=== PATIENT | female | born 1985 | race Caucasian/White ===

== ENCOUNTER → 2018-06-19 08:59 | Outpatient (CLI) | payer MEDICAID, SELFPAY ==
[2017-05-20 01:58] VITALS: BMI 28.3
[2018-06-19 13:30] LABS: Progesterone Level 13.26 ng/mL (See Comment)
== END ==
PROVIDERS: Visit Provider Obstetrics & Gynecology
DX: O20.0 Threatened abortion (principal)
CPT/HCPCS: 36415; 84144; 84702; 84703

== ENCOUNTER → 2018-06-23 13:41 | Outpatient (CLI) | payer MEDICAID, SELFPAY ==
[2018-06-23 19:34] LABS: Chlamydia Trachomatis by PCR Negative (Negative); Neisserai gonorrhoeae by PCR Negative (Negative); Probe Check PASS; Sample Adequacy Control PASS; Specimen Processing Control PASS
== END ==
PROVIDERS: Visit Provider Obstetrics & Gynecology
DX: Z11.3 Encounter for screening for infections with a predominantly sexual mode of transmission (principal)
CPT/HCPCS: 87491; 87591

== ENCOUNTER → 2018-07-21 10:53 | Outpatient (CLI) | payer MEDICAID, SELFPAY ==
[2017-05-20 01:58] VITALS: BMI 28.3
[2018-07-21 12:33] LABS: Absolute Lymphocyte Count 1.88 X10^3/ul (0.83-4.51); Absolute Neutrophil Count 6.5 X10^3/uL (2.0-7.7); Basophil# 0.02 X10^3/uL; Basophil% 0.2 % (0-1); Eosinophil# 0.02 X10^3/uL; Eosinophils% 0.2 % (0-5); Hematocrit 39.8 % (37-47); Hemoglobin 13.3 g/dl (12.0-15.0); Lymphocyte # 1.88 X10^3/ul (4.0); Lymphocyte % 20.5 % (19-41); Mean Corp Hgb Conc 33.4 g/gl (32-36); Mean Corpuscular Hgb 29.9 pg (27.0-32.0); Mean Corpuscular Volume 89.4 fL (81-99); Mean Platelet Vol. 10.8 fl (6.2-12.0); Monocyte% 7.6 % (0-10); Neutrophil # 6.53 X10^3/uL (2.7-7.7); Neutrophil % 71.3 % (47-70); Platelet Count 305 K/mm3 (150-450); RBC Distribution Width SD 42.8 fl (35.1-43.9); Red Blood Count 4.45 M/mm3 (4.2-5.4); White Blood Count 9.2 K/mm3 (4.4-11.0)
[2018-07-21 12:41] LABS: POSITIVE COUNT NO; POSITIVE DIFFERENTIAL NO; POSITIVE MORPHOLOGY NO
[2018-07-21 12:58] LABS: Thyroid Stim Hormone (TSH) 1.82 uIU/mL (0.358-3.74)
[2018-07-21 13:32] LABS: HIV - WCH Non-Reactive (Nonreactive)
[2018-07-21 14:12] LABS: Color, Urine Yellow (Yellow); Glucose, Dipstick Normal (Normal); Ketone-Dipstick Negative (Negative); Leukocyte Esterase-Dipstick Negative /ul (Negative); Nitrite-Dipstick Negative (Negative); Occult Blood-Urine Negative /ul (Negative); Protein-Dipstick Negative (Negative); Urine Bilirubin Dipstick Negative (Negative); Urine Clarity Sl. Cloudy (Clear); Urine Urobilinogen Normal (Normal)
[2018-07-21 14:21] LABS: Amphetamine Urine VISTA NEGATIVE (<1000 ng/mL); Barbiturate Urine VISTA NEGATIVE (< 200 ng/mL); Benzodiazepine Urine VISTA NEGATIVE (< 200 ng/mL); Cocaine Urine VISTA NEGATIVE (< 300 ng/mL); Ecstacy Urine VISTA NEGATIVE (< 500 ng/mL); Methadone Urine VISTA NEGATIVE (< 300 ng/mL); PCP Urine VISTA NEGATIVE (< 25 ng/mL); THC Urine VISTA NEGATIVE (< 50 ng/mL); Vista UDS pH Range 7
[2018-07-24 11:41] LABS: HEPATITIS B SURFACE AG Negative (Negative); Hep C Antibodies 0.1 s/co ratio (0.0-0.9)
[2018-07-27 20:17] LABS: Prenatal RPR NONREACTIVE (NONREACTIVE)
== END ==
PROVIDERS: Visit Provider Obstetrics & Gynecology
DX: Z34.81 Encounter for supervision of other normal pregnancy, first trimester (principal)
CPT/HCPCS: 36415; 80307; 81002; 82306; 84443; 85025; 86703; 86762; 86803; 87340

== ENCOUNTER → 2018-11-10 | Outpatient (CLI) | payer MEDICAID, SELFPAY ==
[2017-05-20 01:58] VITALS: BMI 28.3
[2018-11-10 14:59] LABS: Hematocrit 36.1 % (37-47); Hemoglobin 12.1 g/dl (12.0-15.0); Mean Corp Hgb Conc 33.5 g/gl (32-36); Mean Corpuscular Hgb 29.9 pg (27.0-32.0); Mean Corpuscular Volume 89.1 fL (81-99); Mean Platelet Vol. 10.6 fl (6.2-12.0); Platelet Count 263 K/mm3 (150-450); RBC Distribution Width CV 13.2 % (11.6-14.6); RBC Distribution Width SD 43.1 fl (35.1-43.9); Red Blood Count 4.05 M/mm3 (4.2-5.4); White Blood Count 9.6 K/mm3 (4.4-11.0)
[2018-11-10 15:00] LABS: Scan Indicated on CBC? Y/N NO
[2018-11-10 15:14] LABS: Glucose Challenge Gest 1H 50g 108 mg/dL (70-140)
== END | disposition home or self-care (01) ==
LOC: WOBLAB 10:09
PROVIDERS: Visit Provider Obstetrics & Gynecology
DX: Z34.82 Encounter for supervision of other normal pregnancy, second trimester (principal)
CPT/HCPCS: 36415; 82950; 85027

== ENCOUNTER → 2019-01-12 | Outpatient (CLI) | payer MEDICAID, SELFPAY ==
[2017-05-20 01:58] VITALS: BMI 28.3
== END | disposition home or self-care (01) ==
LOC: LABSPEC 15:06
PROVIDERS: Visit Provider Obstetrics & Gynecology
DX: Z36.85 Encounter for antenatal screening for Streptococcus B (principal)
CPT/HCPCS: 87077; 87081; 87186

== ENCOUNTER 2019-01-25 09:43 | Inpatient (IN) | payer MEDICAID, SELFPAY ==
[2017-05-20 01:58] VITALS: BMI 28.3
[2019-01-25] VITALS (17 sets, daily range): BP systolic 92–121; BP diastolic 52–74; PULSE 60–108; RESP 12–18; TEMP 36.2–36.6; O2SAT 94–100; BMI 27.7
[2019-01-25] MEDS: Lactated Ringers 1,000 ML 999 ML IV (10:25)
[2019-01-25 10:37] LABS: Absolute Lymphocyte Count 1.54 X10^3/uL (0.83-4.51); Absolute Neutrophil Count 6.9 X10^3/uL (2.0-7.7); Basophil# 0.03 X10^3/uL; Basophil% 0.3 % (0-1); Eosinophil# 0.06 X10^3/uL; Eosinophils% 0.6 % (0-5); Hematocrit 38.3 % (37-47); Hemoglobin 12.6 g/dL (12.0-15.0); Lymphocyte # 1.54 X10^3/ul (4.0); Lymphocyte % 16.6 % (19-41); Mean Corp Hgb Conc 32.9 g/dL (32-36); Mean Corpuscular Hgb 29.4 pg (27.0-32.0); Mean Corpuscular Volume 89.5 fL (81-99); Mean Platelet Vol. 10.5 fl (6.2-12.0); Monocyte# 0.76 X10^3/uL; Monocyte% 8.2 % (0-10); NRBC Flagged by Analyzer 0 % (0-5); Neutrophil # 6.85 X10^3/uL (2.7-7.7); Platelet Count 218 K/mm3 (150-450); RBC Distribution Width CV 13.2 % (11.6-14.6); Red Blood Count 4.28 M/mm3 (4.2-5.4); White Blood Count 9.3 K/mm3 (4.4-11.0)
[2019-01-25] MEDS: Lactated Ringers 1,000 ML 150 ML IV (11:24)
[2019-01-25] MEDS: Sodium Citrate/Citric Acid 30 ML UDC PO (11:30)
--- NOTE | 2019-01-25 11:57 | PCM.HP.OB ---
- Problem List (1) 38 weeks gestation of Status: Acute History Date of Admission: 01/25/19 Final KENNETH: 02/06/19 Final KENNETH Source: US <20 weeks Gestational age: 38 Weeks and 4 Days History of this : This is a 33 year-old, G [2], P [1], at 38 2/7 weeks gestational age with hx prior section presents for scheduled repeat section. Yesterday was seen in the office and SUZANNE 5cm. No complaints this morning. Medical History: Medical History (Last Updated 01/25/19 @ 12:04 by Kristina Huber MD) Anxiety F41.9 Asthma J45.909 childhood Seasonal allergies J30.2 Surgical History: Surgical History (Last Updated 01/25/19 @ 11:59 by Kristina Huber MD) Previous section Z98.891 Allergies No Known Allergies Allergy (Verified 05/20/17 01:59) Home Medications: Home Medications Vits [Prenatabs FA ] 1 tablet PO DAILY 05/20/17 Ibuprofen [Motrin] 600 mg PO Q8H PRN PRN 7 Days #30 tab 01/27/19 Oxycodone [Oxyir] 1 tab PO Q6H PRN PRN 7 Days #10 tab 01/27/19 Smoking Status: Never smoker Alcohol: None Number of Fetus(es): 1 NST - FHR Rate Baby A Baseline: 148 bpm History Past Pregnancies: Past Pregnancies Delivery Date Name GA/Weeks Outcome Route Weight Infant Gender Labor Length Anesthesia Delivery Location FOB 2017 Vandana 38 Placental abruption C/S 7 lb F 0 Spinal [facility] Labs: Mom's Labs & Results 01/25/19 01/25/19 10:25 10:25 WBC 9.3 RBC 4.28 Hgb 12.6 Hct 38.3 MCV 89.5 MCH 29.4 MCHC 32.9 RDW Std Deviation 43.0 RDW Coeff of Johnnie 13.2 Plt Count 218 MPV 10.5 Immature Gran % (Auto) 0.300 Neut % (Auto) 74.0 H Lymph % (Auto) 16.6 L [place] % (Auto) 8.2 Eos % (Auto) 0.6 Baso % (Auto) 0.3 Absolute Neuts (auto) 6.9 Absolute Lymphs (auto) 1.54 Nucleated RBC % 0 Blood Type O POSITIVE Antibody Screen NEGATIVE Course Did the patient receive Yes care? Labs Blood Type: O RH: POSITIVE RPR/VDRL/Syphilis Nonreactive Rubella status Immune HbSAg Negative Date Done: 07/21/18 Chlamydia Negative Gonorrhea Negative HIV/AIDS Non-Reactive Group B Strep: Positive Current Obstetrical History Gestational Diabetes No Incompetent Cervix No Infertility No IUGR No Macrosomia No Hypertension/Pre-eclampsia No Placenta Previa/Abruption No PTL/PROM No Uterine anomaly No Oligohydramnios Yes Polyhydramnios No Multiple gestation No Past Medical History Asthma Yes: HIGH SCHOOL NOT NOW. Diabetes No Hypertension No Heart disease No Mitral valve prolapse No Neurologic/Seizure disorder/ No Migraines Kidney disease No Liver disease No Varicosities No Clotting disorders/Hx of DVT No Thyroid Dysfunction No Other medical diseases No Psychiatric disorders No Major trauma No Abnormal PAP smear No Sleep apnea No Mammogram in the last 2 years No Social History Marital Status: Alleged father WALDEMAR Hx Smoking No Smoking Status Never smoker How long have you used DENIES USE substances (years)? Expected Infant Delivery Method: Scheduled Section Number of Visits: 11 Review of Systems Constitutional: Denies: Anorexia, Chills, Fever Cardiovascular: Denies: Chest Pain Respiratory: Denies: Shortness of Breath Gastrointestinal: Denies: Abdominal Pain, Nausea, Vomiting Gynecological: Denies: Vaginal bleeding Physical Exam Vitals: AVSS General: Alert, Oriented x3, Cooperative, No apparent distress HEENT: Atraumatic, Normocephalic Cardiovascular: Regular rate, Regular Rhythm, Normal S1, Normal S2 Lungs: Clear to auscultation, Normal air movement Abdomen: Soft, Non Tender, Non-Distended, Gravid Extremities:: No edema, No tenderness/swelling Neurological: Neuro grossly intact Estimated gestational size: Appropriate for gestational size Presentation: Cephalic Assessment/Plan All Active Problems (Last Updated 01/25/19 @ 12:04 by Kristina Huber MD) 38 weeks gestation of (Acute) Placental abruption in third trimester (Acute) delivery delivered (Acute) This is a 33 year-old, G [2], P [1001], at 38 2/7 weeks gestational age with oligohydramnios for repeat section. -Declines LARC, sterilization -Consents previously signed, reviewed.
[2019-01-25] MEDS: Cefazolin 2 GM in 0.9% Normal Saline 100 ML IV (12:24)
--- NOTE | 2019-01-25 13:15 | OP.PCM_ITS ---
Problem List (1) 38 weeks gestation of Status: Acute Report of Operation Description of Surgical Findings:: Normal bilateral tubes and ovaries. Infant weight 2945 g Delivery Classification: Scheduled Final KENNETH: 02/06/19 Final KENNETH Source: US <20 weeks Gestational age: 38 Weeks and 2 Days rag grader: Robbie Quispe Type of Anesthesia:: Spinal Date of Procedure: 01/25/19 Pre-Operative Diagnosis: Prior section, oligohydramnios Post-Operative Diagnosis: Prior section, oligohydramnios Indications: 83-year-old 2 para 1-0-0-1 admitted at 38-2/7 weeks gestational age for scheduled section for oligohydramnios. She previously declined trial of labor after section. Procedural risks, benefits, indications and alternatives were reviewed Indications for : Repeat Elective , Oligohydramnios Description of Procedure: The patient was taken to the operating room and spinal analgesia was administered. She is placed in a dorsal supine position with left lateral tilt. The perineum and abdomen were prepped and draped in sterile fashion. And the spinal was found to be adequate. A Pfannenstiel incision was made using a scalpel and brought down to incise the subcutaneous tissue and rectus fascia at the midline. Subcutaneous tissue was bluntly dissected off the fascia later ally. The fascial incision was dissected laterally and cephalad using curved Walden scissors. The superior leaflet of the rectus fascia was grasped using Kaylie clamps and bluntly dissected and sharply dissected from the underlying rectus muscle. In a similar fashion the inferior rectus fascia was dissected from the underlying muscle. The rectus muscles were bluntly at the midline. The peritoneum was identified and entered [sharply]. The bladder blade was placed into the abdomen and the vesicouterine peritoneal fold identified. The fold was incised and a bladder flap created. Bladder blade was then repositioned to the abdomen. A low transverse hysterotomy was made using the [Metzenbaum scissors] to level of the membranes. The hysterotomy was extended bluntly cephalad and caudad. The membranes were then ruptured revealing clear fluid. The head was elevated and brought to the level of the hysterotomy and the infant delivered revealing vigorous [male] . The cord was doubly clamped and cut after 30 seconds. The infant was passed to awaiting [nursery personnel]. The placenta was [expressed] from the uterus and appeared intact on inspection. The uterus was cleared of debris. The hysterotomy was then repaired using 0 Vicryl running lock suture. A second imbricating layer was also placed for additional hemostasis. The bladder blade was removed. The anterior cul-de-sac was cleared of debris. The peritoneum and rectus muscles were reapproximated using 2-0 Vicryl running suture. The rectus fascia was closed using 0 Vicryl running suture. The subcutaneous tissue was sponge irrigated and small capillary bleeding controlled using the Bovie device. The subcutaneous tissue was reapproximated using 2-0 Vicryl. The skin was closed using 4-0 Monocryl subcuticularly by the ASSOCIATE PROFESSOR OF RADIOLOGY under my supervision. A Mepilex occlusive dressing was placed over the incision. The fundus was firm. The patient was then transferred to the recovery room without complication. Sponge, instrument, and needle counts were correct ?2. Amniotic Membrane Rupture Type: Artificial Amniotic Fluid Description: Clear Placenta Disposition: [facility] Drain: Sam to straight drain Fluids Replaced: 100 mL Cord Entanglement: Around neck x 1, loose Nuchal Cord Compression: Without compression Cord Vessel Description: 3 Vessels Esitmated Blood Loss (ml): 600 Infant Gender: Male (1 minute): 8 (5 minute): 9 Delayed cord clamping: Yes Antibiotic Given: Ancef 2 grams IV x1 Pt instructed on risks of surgery: Bleeding, Anesthesia Risks, Infection, Need for Future C-Sections, Injury to surrounding structure(s) including bowel and bladder, Availability of other non-permanent control options Complications: None - Admit VTE Documentation VTE Present on Admission: No VTE Mechan Device Prophylaxis: SCD's VTE Pharm Prophylaxis ordered?: No
[2019-01-25] MEDS: Oxytocin 30 units/NS 500 ml 30 UNITS/500 ML IV.SOLN 167 UNITS IV (13:54)
[2019-01-25] MEDS: 0.9% Saline Lock 10 ML Syringe IV ×2 (14:23→20:19)
[2019-01-25] MEDS: proCHLORPERazine 10 MG/2 ML Vial IV (14:23)
--- NOTE | 2019-01-25 15:19 | CPS ---
mom busy,left in room for nursing to start
[2019-01-25] MEDS: Ondansetron 4 MG/2 ML Vial IV ×2 (16:20→20:19)
[2019-01-25] MEDS: Lactated Ringers 1,000 ML 100 ML IV (17:00)
[2019-01-25] MEDS: Ketorolac 30 MG/ML Syringe IV (20:18)
[2019-01-26] VITALS (11 sets, daily range): BP systolic 95–118; BP diastolic 54–83; PULSE 74–89; RESP 14–18; TEMP 36.3–36.8; O2SAT 97–100
[2019-01-26] MEDS: Lactated Ringers 1,000 ML 100 ML IV (01:31)
[2019-01-26] MEDS: Ketorolac 30 MG/ML Syringe IV ×4 (02:22→20:33)
[2019-01-26 05:17] LABS: Hemoglobin 8.9 g/dL (12.0-15.0); Mean Corpuscular Hgb 29.5 pg (27.0-32.0); Mean Corpuscular Volume 89.4 fL (81-99); Mean Platelet Vol. 10.6 fl (6.2-12.0); Platelet Count 180 K/mm3 (150-450); RBC Distribution Width CV 13.3 % (11.6-14.6); RBC Distribution Width SD 43.7 fl (35.1-43.9); Red Blood Count 3.02 M/mm3 (4.2-5.4)
[2019-01-26] MEDS: 0.9% Saline Lock 10 ML Syringe IV ×3 (08:28→20:33)
--- NOTE | 2019-01-26 09:04 | PN.OBGYN_ITS ---
Subjective: No issues overnight. Pain controlled, improved today. Passing flatus. Tolerates regular diet. No issues voiding. Denies heavy lochia. Objective: AVSS - Physical Exam General: Alert, Oriented x3, Cooperative, No apparent distress HEENT: Atraumatic, Normocephalic Lungs: Clear to auscultation, Normal air movement Cardiovascular: Regular rate, Regular Rhythm, Normal S1, Normal S2 Abdomen: Bowel Sounds Present, Soft, Non Tender, Non-Distended, - - fundus firm and nontender, incisional dressing c/d/i Extremities: No edema, No Calf Tenderness Neurological: Neuro grossly intact Psych/Mental Status: Normal Affect, Appropriate, Alert and oriented to time, place, person, mood and affect Vital Signs Temp Pulse Resp BP Pulse Ox 98.2 F 85 18 118/83 H 97 01/26/19 08:51 01/26/19 08:51 01/26/19 08:51 01/26/19 08:51 01/26/19 08:51 Oxygen Delivery Method Room Air Weight: 68.765 kg Body Mass Index (BMI) 27.7 Intake and Output for Last 24 Hours 01/24/19 01/25/19 01/26/19 23:59 23:59 23:59 Intake Total 4210 / 4210 1050 / 1050 Output Total 900 / 900 1000 / 1000 Balance 3310 / 3310 50 / 50 Laboratory Tests Past 24 Hrs 01/25/19 01/25/19 01/26/19 10:25 10:25 05:05 WBC 9.3 12.0 H RBC 4.28 3.02 L Hgb 12.6 8.9 L Hct 38.3 27.0 L MCV 89.5 89.4 MCH 29.4 29.5 MCHC 32.9 33.0 RDW Std Deviation 43.0 43.7 RDW Coeff of Johnnie 13.2 13.3 Plt Count 218 180 MPV 10.5 10.6 Immature Gran % (Auto) 0.300 Neut % (Auto) 74.0 H Lymph % (Auto) 16.6 L [place] % (Auto) 8.2 Eos % (Auto) 0.6 Baso % (Auto) 0.3 Absolute Neuts (auto) 6.9 Absolute Lymphs (auto) 1.54 Nucleated RBC % 0 Blood Type O POSITIVE Antibody Screen NEGATIVE Medical Necessity - Tobacco Use Smoking Status: Never smoker Assessment/Plan All Active Problems (Last Updated 01/25/19 @ 12:04 by Kristina Huber MD) 38 weeks gestation of (Acute) Placental abruption in third trimester (Acute) delivery delivered (Acute) This is a 33 year-old, G [2], P [2002] POD#2 s/p RLTCS doing well. -Routine postop care
[2019-01-26] MEDS: Prenatal Vits Tablet 1 TABLET PO (10:38)
[2019-01-26] MEDS: Senna/Docusate Sodium 1 Tablet PO (10:38)
[2019-01-26] MEDS: Acetaminophen 500 MG Tablet 1000 MG PO (10:39)
[2019-01-27 01:30] VITALS: BP 108/61; PULSE 85; RESP 16; TEMP 36.4; O2SAT 99
[2019-01-27] MEDS: Ketorolac 30 MG/ML Syringe IV ×3 (01:30→14:20)
[2019-01-27] MEDS: 0.9% Saline Lock 10 ML Syringe IV ×3 (01:30→14:20)
--- NOTE | 2019-01-27 03:44 | DCINST_ITS ---
Discharge Diet: No Restrictions Discharge Activity: Return to Normal Activity, May not drive while taking narcotic pain medications., May Shower, - - No tub bath for 1-2 weeks May resume sexual activity in: 4-6 weeks Lifting Restrictions: 10 lb Suture Line Care: Avoid Pulling/Pushing Remove Dressing in (days):: 2 Cleanse incision/area with: Soap & Water Additional Instructions: If you experience any of the following, contact your healthcare provider. * Bleeding that soaks a pad every hour for 2 hours * Fever 100.4 or higher * Unrelieved incision or abdominal pain * Swelling, redness, discharge or bleeding from your incision or episiotomy site * Your incision begins to separate * Problems urinating (including inability to urinate or burning while urinating) . * Visual changes * Severe headache * Flu-like symptoms * Pain or redness in one of both of your breasts * Pain, warmth, tenderness or swelling in your legs, especially the calf area * Frequent nausea and vomiting * Symptoms of depression or anxiety If you experience any of the following, call 911 or go to the nearest Emergency Room. * Chest pain * Problems breathing * Seizure activity * Partial or complete paralysis of a body part, slurred speech, weakness or drooping of the face, or a sudden inability to walk or hold your balance Allergies/Adverse Reactions: Allergies No Known Allergies Allergy (Verified 05/20/17 01:59) Medications to take at Discharge Vits [Prenatabs FA ] 1 tablet PO DAILY 05/20/17 Ibuprofen [Motrin] 600 mg PO Q8H PRN PRN 7 Days #30 tab 01/27/19 Oxycodone [Oxyir] 1 tab PO Q6H PRN PRN 7 Days #10 tablet 01/27/19 The following prescriptions were given: Ibuprofen [Motrin] 600 mg PO Q8H PRN PRN 7 Days #30 tab PRN Reason: Mild Pain (1-07/23) Transmission Status: Pending to [id number] Oxycodone [Oxyir] 1 tab PO Q6H PRN PRN 7 Days #10 tablet PRN Reason: Mod-Severe Pain (-02/22) Transmission Status: Received by [id number] Follow-Up: Call to make an appointment with your doctor for an incision check in 1-2 weeks. You will also need a 6 week post- follow up appointment. Test results from this visit will be discussed in further detail at your follow- up appointment, if applicable. Please Follow Up With: Kristina Huber MD When: 1-2 weeks Primary Care Physician: Care Physician,No Primary [Primary Care Provider] -
--- NOTE | 2019-01-27 07:52 | PCM.PN.OB ---
Subjective: No issues overnight. Pain controlled, not requiring oxycodone. Denies heavy lochia. Had a bowel movement. Requests d/c home today. Objective: AVSS - Physical Exam General: Alert, Oriented x3, Cooperative, No apparent distress HEENT: Atraumatic, Normocephalic Lungs: Clear to auscultation, Normal air movement Cardiovascular: Regular rate, Regular Rhythm, Normal S1, Normal S2 Abdomen: Bowel Sounds Present, Soft, Non Tender, Non-Distended, - - Fundus firm and nontender, lochia scant Extremities: No edema, No Calf Tenderness Neurological: Neuro grossly intact Psych/Mental Status: Normal Affect, Appropriate, Alert and oriented to time, place, person, mood and affect Vital Signs Temp Pulse Resp BP Pulse Ox 97.6 F L 85 16 108/61 99 01/27/19 01:30 01/27/19 01:30 01/27/19 01:30 01/27/19 01:30 01/27/19 01:30 Oxygen Delivery Method Room Air Weight: 68.765 kg Body Mass Index (BMI) 27.7 Intake and Output for Last 24 Hours 01/25/19 01/26/19 01/27/19 23:59 23:59 23:59 Intake Total 4210 / 4210 1994 Output Total 900 / 900 1900 / 1900 Balance 3310 / 3310 95 / 95 Medical Necessity - Tobacco Use Smoking Status: Never smoker Assessment/Plan All Active Problems (Last Updated 01/25/19 @ 12:04 by Kristina Huber MD) 38 weeks gestation of (Acute) Placental abruption in third trimester (Acute) delivery delivered (Acute) This is a 33 year-old, G [2], P [2] POD#2 s/p RLTCS doing well. -Rh positive -Routine postop care -D/C this afternoon
--- NOTE | 2019-01-27 07:55 | PCM.DC.SUM ---
Discharge Date and Diagnosis Date of Admission: 01/25/19 Date of Discharge: 01/27/19 Hospital Course and Treatment Operations: - - section Procedures: None Summary of Care Provided: The patient is a 33 year old F admitted at 38 weeks gestation with oligohydramnios for scheduled repeat section. Her surgery was uncomplicated and her postoperative course unremarkable. She was discharged to home on postop day#2. - Physical Exam Vital Signs Temp Pulse Resp BP Pulse Ox 97.6 F L 85 16 108/61 99 01/27/19 01:30 01/27/19 01:30 01/27/19 01:30 01/27/19 01:30 01/27/19 01:30 Oxygen Delivery Method Room Air Weight: 68.765 kg Body Mass Index (BMI) 27.7 Intake and Output for Last 24 Hours 01/25/19 01/26/19 01/27/19 23:59 23:59 23:59 Intake Total 4210 / 4210 1994 Output Total 900 / 900 1900 / 1900 Balance 3310 / 3310 95 / 95 Discharge Diet: No Restrictions Discharge Activity: Return to Normal Activity, May not drive while taking narcotic pain medications., May Shower, - - No tub bath for 1-2 weeks May resume sexual activity in: 4-6 weeks Suture Line Care: Avoid Pulling/Pushing Remove Dressing in (days):: 2 Cleanse incision/area with: Soap & Water Home Medications: Medications to take at Discharge Vits [Prenatabs FA ] 1 tablet PO DAILY 05/20/17 Ibuprofen [Motrin] 600 mg PO Q8H PRN PRN 7 Days #30 tab 01/27/19 Oxycodone [Oxyir] 1 tab PO Q6H PRN PRN 7 Days #10 tab 01/27/19 Following Prescrptions Were Given to Patient: Ibuprofen [Motrin] 600 mg PO Q8H PRN PRN 7 Days #30 tab PRN Reason: Mild Pain (1-3/10) Transmission Status: [facility] by [id number] Oxycodone [Oxyir] 1 tab PO Q6H PRN PRN 7 Days #10 tab PRN Reason: Mod-Severe Pain (4-10/10) Transmission Status: Received by [id number] Primary Care Physician: Care Physician,No Primary [Primary Care Provider] - Please Follow Up With: Kristina Huber MD When: 1-2 weeks Medical Necessity - Tobacco Use Smoking Status: Never smoker Meaningful Use Info Meaningful Use Diagnoses (Choose all that apply): None applicable
[2019-01-27 08:07] VITALS: BP 105/71; PULSE 84; RESP 16; TEMP 36.5; O2SAT 98
--- NOTE | 2019-01-27 11:10 | CASEMGMT ---
Social Work Assessment Labor and Delivery Unit Date of Referral: 01/25/19 Time of Referral: 18:53 Date of Intervention: 01/27/19 Time of Intervention: 11:10a Reason for Referral: HX POST DEPRESSION, ANXIETY AND RAGE. History obtained from: MEDICAL CHART, MOTHER OF BABY (MOB) AND FATHER OF BABY (FOB). Household composition: MOB AND FOB LIVE IN THE FINISHED BASEMENT OF MOB'S PARENT'S HOME WITH 20 MONTH OLD DAUGHTERNIC. Patient's parent/guardian status: MOB AND FOB HAVE BEEN TOGETHER 9 YEARS ( 5). Medical History: MOB WITH HX OF WITH FIRST CHILD. Financial Status: LIMITED INCOME. 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 Infant Supplies: MOB AND FOB REPORT HAVE ALL NEEDS MET FOR BABY. Childcare/Caregiver(s): MOB AND FOB REPORT GOOD SUPPORT FROM MOB'S PARENTS AND FOB'S MOTHER. Transportation: NO ISSUES OR CONCERNS Programs/Agencies Involved: [facility] Children Services/Legal Issues: MOB AND FOB DENY ANY ISSUES OR INVOLVEMENT. Behavioral Health Issues: Mental Health History: MOB REPORTS HX OF PPD, ANXIETY AND RAGE AFTER FIRST . MOB STATES ANXIETY AND RAGE STARTED AFTER SHE WEANED HERSELF OFF OF ZOLOFT WHEN SHE BECAME WITH BABYJOHNNY. MOB BELIEVES THE RAGE TO HAVE BEEN A SIDE EFFECT FROM WEANING OFF ZOLOFT. MOB STATES RAGE WAS NEVER TOLD ANYONE. MOB REPORTS PLANS TO FOLLOW UP WITH COUNSELING SERVICES AND SPEAK TO OB ABOUT STARTING BACK ON MEDICATION. Substance Use History: MOB DENIES ANY HX OF SUBSTANCE ABUSE. Drug Screens: NEGATIVE Family/Social Stressors: MOB AND FOB DENY ANY STRESSORS AT THIS TIME, BUT STATE WE'LL HAVE OUR HANDS FULL WHEN DISCUSSING NEW BABY AND 20 MONTH OLD AT HOME. SUPPORT AND ENCOURAGEMENT PROVIDED BY THIS WORKER. Support Systems: MOB AND FOB HAVE GOOD RELATIONSHIP AND RELY ON EACH OTHER. MOB STATES GOOD RELATIONSHIP WITH PARENTS WHO WILL ASSIST NEEDED AND ARE CURRENTLY TAKING CARE OF 20 MONTH OLDNIC. Depression/Shaken Baby/Safe Sleeping REVIEWED AND BOTH VERBALIZE UNDERSTANDING. RESOURCES PROVIDED. ASSESSMENT: SW REFERRED D/T HX OF PPD, ANXIETY AND RAGE. MET WITH MOB AND FOB IN ROOM. INTRODUCED ROLE AND REASON FOR REFERRAL. MOB SITTING UP IN BED HOLDING BABY JOHNNY HERRERA UPON ENTERING THE ROOM. DISCUSSED HX OF PPD. MOB REPORTS WAS PRESCRIBED GENERIC ZOLOFT AND WHEN SHE BECAME WITH JOHNNY, SHE WEANED OFF THE ZOLOFT. MOB STATES FELT FINE FOR A FEW WEEKS, BUT THEN ANXIETY HAD INCREASED. MOB STATES FEELINGS OF RAGE WHERE NEVER TOWARDS ANY ONE. MOB STATES IF SOMETHING WAS TO FALL, I WOULD WANT TO THROW IT AGAINST THE WALL. MOB STATES WAS IN COUNSELING AT [facility] AND STATES PLANS ON RETURNING. MOB ALSO WISHES TO DISCUSS OPTIONS FOR TREATMENT WITH OB. MOB IS AND FEELS IT IS GOING WELL. MOB AND FOB HAVE GOOD SUPPORT FROM ONE ANOTHER AND FAMILY. MOB DENIES ANY NEEDS OR CONCERNS. INFORMATIONAL PACKET ON PPD PROVIDED AND REVIEWED. MOB AND FOB ALSO PROVIDED WITH LIST OF RESOURCES FOR [facility]. UPDATED PATIENT'S NURSE, GALA ON THIS WORKER'S ASSESSMENT. PLAN FOR MOB AND BABY TO D/C LATER THIS DAY. PLAN: HOME WITH RESOURCES PROVIDED No other services requested or indicated. -Puja Palacio, OIL AND GAS EXPLORATION TECHNICIAN, MUTUEL CLERK
[2019-01-27] MEDS: Acetaminophen 500 MG Tablet 1000 MG PO (11:17)
[2019-01-27] MEDS: Prenatal Vits Tablet 1 TABLET PO (11:17)
[2019-01-27 14:14] VITALS: BP 101/66; PULSE 77; RESP 16; TEMP 36.7; O2SAT 99
[2019-01-27] MEDS: Senna/Docusate Sodium 1 Tablet PO (14:30)
== END 2019-01-27 16:15 | disposition home or self-care (01) | DRG 540 ==
PROVIDERS: Admitting Provider Obstetrics & Gynecology; Referring Provider Obstetrics & Gynecology; Visit Provider Obstetrics & Gynecology
PROC: 10D00Z1 Extraction of Products of Conception, Low, Open Approach (ICD-10-PCS; CPT 59514; principal; 2019-01-25 11:45)
DX: O41.03X0 Oligohydramnios, third trimester, not applicable or unspecified (principal); O69.81X0 Labor and delivery complicated by cord around neck, without compression, not applicable or unspecified; Z3A.38 38 weeks gestation of pregnancy; Z37.0 Single live birth
CPT/HCPCS: 85025; 85027; 86850; 86900; 86901; 99218; J7120; A4216; G0378; J2405

== ENCOUNTER → 2020-10-17 14:01 | Outpatient (CLI) | payer SELFPAY ==
[2019-01-25 10:33] VITALS: BMI 27.7
[2020-10-21 13:24] LABS: HPV APTIMA, High Risk Negative (Negative)
== END ==
PROVIDERS: Visit Provider Obstetrics & Gynecology
DX: Z12.4 Encounter for screening for malignant neoplasm of cervix (principal)
CPT/HCPCS: 87624; 88175; G0145

== ENCOUNTER → 2020-10-29 15:34 | Outpatient (CLI) | payer SELFPAY ==
[2019-01-25 10:33] VITALS: BMI 27.7
--- NOTE | 2020-10-29 15:42 | MRI_ITS ---
STUDY: MRI CERVICAL SPINE WITHOUT CONTRAST REASON FOR EXAM: Female, 34 years old. NECK PAIN RADITAES INTO L ARM/FINGERS TECHNIQUE: Standardized fat and water weighted pulse sequences were obtained in the sagittal and axial planes. COMPARISON: None FINDINGS: Low lying cerebellar tonsils, extending 5 mm below the foramen magnum, with peglike appearance. Normal anterior atlantoaxial articulation. Normal odontoid process. Normal cervical lordosis. Normal vertebral bodies and posterior osseous elements. C2-3: Normal endplates. Normal disc height, signal and morphology. Normal central canal and intervertebral neural foramina. C3-4: Normal endplates. Normal disc height, signal and morphology. Normal central canal and intervertebral neural foramina. C4-5: Normal endplates. Normal disc height, signal and morphology. Normal central canal and intervertebral neural foramina. C5-6: Normal endplates. Mild disc space narrowing. Small central disc protrusion causes mild cord flattening and borderline canal stenosis. Normal intervertebral neural foramina. C6-7: Normal endplates. Normal disc height, signal and morphology. Small central disc protrusion with mild canal stenosis. Normal intervertebral neural foramina. C7-T1: Normal endplates. Normal disc height, signal and morphology. Normal central canal and intervertebral neural foramina. Normal cervical cord. Normal visualized soft tissue structures. MRI/Spine Cervical (Routine) IMPRESSION: 1. Tonsillar ectopia. If clinically warranted, consider CT of the brain to exclude hydrocephalus. 2. Small C5-6 disc protrusion causing cord flattening and borderline canal stenosis. 3. Small C6-7 disc protrusion and mild canal stenosis. Electronically Signed: Dorothy Boyd MD at 22:17 EDT Tel , Service support ,
== END ==
PROVIDERS: PCP Family Medicine
DX: M99.01 Segmental and somatic dysfunction of cervical region (principal); M54.12 Radiculopathy, cervical region
CPT/HCPCS: 72141

== ENCOUNTER → 2021-10-06 | Outpatient (CLI) | payer OTHER, SELFPAY ==
[2021-10-06 13:24] LABS: Hematocrit 36.3 % (37-47); Hemoglobin 10.8 g/dL (12.0-15.0); Mean Corp Hgb Conc 29.8 g/dL (32-36); Mean Corpuscular Hgb 23.9 pg (27.0-32.0); Mean Corpuscular Volume 80.3 fL (81-99); Mean Platelet Vol. 10.6 fl (6.2-12.0); Platelet Count 449 K/mm3 (150-450); RBC Distribution Width CV 16.2 % (11.6-14.6); RBC Distribution Width SD 47.2 fl (35.1-43.9); Red Blood Count 4.52 M/mm3 (4.2-5.4); White Blood Count 7.7 K/mm3 (4.4-11.0)
[2021-10-06 13:39] LABS: Vitamin D,25 Hydroxy 30.2 ng/mL
[2021-10-06 13:49] LABS: AST(SGOT) 12 U/L (15-37); Alanine Aminotransfer ALT/SGPT 25 U/L (13-56); Albumin, Serum 4.2 g/dL (3.2-5.0); Alkaline Phosphatase 60 U/L (45-117); Bilirubin, Direct 0.18 mg/dL (0.00-0.30); Estradiol 81.4 pg/mL; Free T3 2.9 pg/mL (2.18-3.98); Globulin 3.7 g/dL (2.2-4.2); Protein, Total 7.9 g/dL (6.4-8.2); T4 Free Direct 1.22 ng/dL (0.76-1.46); Thyroid Stim Hormone (TSH) 2.75 uIU/mL (0.358-3.74)
[2021-10-07 10:02] LABS: Sex Hormone-binding Globulin 71.1 nmol/L (24.6-122.0)
[2021-10-08 17:04] LABS: T3 Total - Triiodothyronine 1.01 ng/mL (0.6-1.81)
[2021-10-13 22:06] LABS: Thyroid Peroxidase AB < 8 IU/mL (0-34)
[2021-10-14 09:10] LABS: Thyroglobulin Antibody < 1.0 IU/mL (0.0-0.9)
== END | disposition home or self-care (01) ==
LOC: WOBLAB 11:37
PROVIDERS: PCP Family Medicine; Visit Provider Obstetrics & Gynecology
DX: R45.86 Emotional lability (principal); N92.1 Excessive and frequent menstruation with irregular cycle
CPT/HCPCS: 36415; 80076; 82306; 82627; 82670; 84144; 84270; 84403; 84439; 84443; 84480; 84481; 85027; 86376; 86800; 82626

== ENCOUNTER 2022-01-21 21:43 | Observation (INO) | payer MEDICAID, SELFPAY ==
[2022-01-15 11:56] LABS: Hemoglobin 13.4 g/dL (12.0-15.0); Mean Corp Hgb Conc 32.7 g/dL (32-36); Mean Corpuscular Hgb 28.5 pg (27.0-32.0); Mean Platelet Vol. 10.8 fl (6.2-12.0); Platelet Count 308 K/mm3 (150-450); RBC Distribution Width CV 15.5 % (11.6-14.6); RBC Distribution Width SD 49.8 fl (35.1-43.9); Red Blood Count 4.71 M/mm3 (4.2-5.4); White Blood Count 7.8 K/mm3 (4.4-11.0)
[2022-01-15 11:59] LABS: Magnesium 1.9 mg/dL (1.6-2.6)
[2022-01-15 12:03] LABS: International Normalized Ratio 0.9; Prothrombin Time (Protime)PT. 12.3 SECONDS (11.7-14.9)
[2022-01-21] VITALS (18 sets, daily range): BP systolic 84–122; BP diastolic 51–82; PULSE 65–115; RESP 11–18; TEMP 36.3–37.2; O2SAT 98–100; BMI 23.9; BMI 25.4
--- NOTE | 2022-01-21 | OV_PTH ---
PATIENT: CHAN WELCH LOC: MS3 U#:[id number] AGE/SX: 36/F ROOM: MS317 RE01/21/[address]: Dr. Brianna Linn DO : 1985 BED: 1 DIS: 01/22/2022 SPEC #: [id number] RECD: 01/21/22 12:01 STATUS: CLEO RERogelio #: [id number] SCOTTIE: 01/21/22 00:[address]: Brianna Linn DEPT: SURGICAL PATHOLOGY RECD BY: Jg Reyes ENTERED: 01/21/22 12:03 SP TYPE: OVARY OTHR DR: Dr. Gibran Nye MD Tissues: A - OVARIAN CYST B - CYST C - Endometrium, NOS Procedures: Surgery Specimen Level IV HEADER OPERATION: CONCEPCIÓNS, jeremi robotic ovarian cystectomy PRE-OP DIAGNOSIS: Endometriosis, pelvic pain TISSUE SUBMITTED: A ? Left ovarian cyst, B ? Uterine cyst, C ? Right endometrioma MICROSCOPIC DIAGNOSIS A. Left ovarian cyst, cystectomy: Hemorrhagic corpus luteal cyst. B. Uterine cyst, biopsy: Consistent with benign mesothelial cyst. C. Right endometrioma: Ovarian tissue with endometriotic cyst. SHELBI:letha 01/22/2022 MICROSCOPIC DESCRIPTION Slides are reviewed. GROSS DESCRIPTION A - Received in fixative is one container labeled with the patient's name and designated left ovarian cyst. The specimen consists of a partially previously opened cyst measuring 2.5 x 1.5 x 1 cm. The entire specimen is submitted in two cassettes. B - Received in fixative is one container labeled with the patient's name and designated uterine cyst. The specimen consists of a fragment of emerson soft tissue measuring 0.4 x 0.4 x 0.1 cm. The specimen is totally submitted in one cassette. C - Received in fixative is one container labeled with the patient's name and designated right endometrioma. The specimen consists of an irregular fragment of hemorrhagic soft tissue measuring 9 x 2 x 0.3 cm. The specimen serially sectioned and submitted entirely in four cassettes. / SHELBI:letha 01/21/2022 TC:5 CPT: 47611 x3
--- NOTE | 2022-01-21 06:12 | HP.PCM.OB_ITS ---
History and Physical Date of Admission: 01/21/22 HPI:? 36-year-old female with endometriosis and pelvic pain presenting for?robotic assisted laparoscopic ovarian cystectomy, possible oophorectomy, fulgeration of endometriosis/excision of endometriosis. Medical History: 1. Endometriosis Medications: none Allergies:?NKDA PMH: : (2).Parity: Full term (2). Surgical Hx: section - 2018, 2019 [place] Tooth Extraction - (2001) Anesthesia Complications: None. FH: Diabetes Mellitus Type 2 SH: Personal Habits:Tobacco Use: Patient has never smoked.Alcohol: Occasionally consumes alcohol.Drug Use: Denies Drug Use.Daily Caffeine: Consumes on average 3 cups of regular coffee per day. Sexual Hx:STDS: No STD History.Additional Info: sexually active Reviewed and updated. ROS: Const:?Denies fatigue, fever, hot flashes, insomnia, weight gain and weight loss. CV:?Denies irregular heartbeat, pain and shortness of breath. Resp:?Denies difficulty breathing, cough and shortness of breath. :?Denies abnormal bleeding, bloating, decreased interest in sex and pruritus. Lochia: Patient denies any discharge or clotting. Denies dysuria, frequency, hematuria, nocturia, urgency and urinary leakage. Neuro:?Denies dizziness, fainting and seizures. Allan/Lymph:?Denies easy bleeding and excessive bleeding. Allergy/Immuno:?Denies new allergies. Physical Exam: BP:?125/75?Ht:?62 5'2?Wt:?133lb?Wt Prior:?131lb 0oz as of 11/17/21?Wt Dif:?+2lb?BMI:?24.3?LMP:?12/30/21 Const:?Appears healthy and well developed. No signs of acute distress present. Alert and oriented x 3. Patient is well behaved and cooperative. Resp:?Respiration rate is normal. Inspection of chest reveals AP is unremarkable and no chest wall deformity. CV:?Rate is regular. Rhythm is regular. Integumentary:?Skin warm and dry with no evidence of unusual rashes or suspicious lesions. Hair appears normal. Neuro:?Mood is normal. Assessment/Plan: 36-year-old female with endometriosis and pelvic pain presenting for?robotic assisted laparoscopic ovarian cystectomy, possible oophorectomy, fulgeration of endometriosis/excision of endometriosis. All risks/benefits/alternatives discussed. Risks include, but are not limited to: risk of bleeding to the point of transfusion, infection, injury to surrounding tissue (bowel/bladder/major abdominal vessels/uterine perforation), VTE, ICU admission. Pt aware and consented.
[2022-01-21 07:05] LABS: Internal QC Validated? YES +Cl - CLEAR BKGD; Pregnancy, Urine Negative Negative
[2022-01-21] MEDS: Lactated Ringers 1,000 ML 40 ML IV ×3 (07:15→13:44)
[2022-01-21] MEDS: Gabapentin 600 MG Tablet PO (07:16)
[2022-01-21] MEDS: Acetaminophen 500 MG Tablet 1000 MG PO (07:16)
[2022-01-21] MEDS: Cefazolin 2 GM in 0.9% Normal Saline 100 ML IV (08:28)
--- NOTE | 2022-01-21 08:32 | PCM.OPRPT ---
Report of Operation Date of Procedure: 01/21/22 Pre-Operative Diagnosis: Endomteriosis, Bilateral endometriomas Post-Operative Diagnosis: Endomteriosis, Left endometriomas, Right simple ovarian cyst, Colon adhesions Surgery/Procedure Performed:: Robotic assisted bilateral ovarian cystectomy, lysis of adhesions, Fulgeration of endometriosis, excision of uterine cyst Description of Surgical Findings:: Normal external genitalia. Large bilateral ovarian cysts approximately 8 to 10 cm. Left fallopian tube adhesion to posterior uterus. Small areas of endometriotic implants in posterior cul-de-sac, left pelvic sidewall. Cysts on the uterine serosa, questionable peritoneal cyst. Filmy adhesion of colon to left pelvic sidewall. Type of Anesthesia: General Specimen's removed: Left ovarian cyst, right ovarian endometrioma, uterine cyst Estimated Blood Loss (mL): 20 cc Fluids Replaced: 1600 cc Description of Procedure: Indications/risk/benefits: 36-year-old female with bilateral ovarian cysts and pelvic pain plan for robotic assisted bilateral ovarian cystectomy, possible oophorectomy, excision or fulguration of endometriosis. All risk, benefits, alternatives discussed with patient. Risk clued but are not limited to: Risk of bleeding to the point of transfusion, infection, injury to surrounding tissue including bowel/bladder/uterine perforation/injury to major abdominal vessels, VTE, ICU admission. Patient aware and consented. Procedure: Patient taken to the operating room and placed under general anesthesia. Placed in the dorsal lithotomy position and prepped and draped in the usual sterile fashion. Sam catheter placed. Weighted speculum placed in the posterior vagina and right angle retractor used to visualize cervix. Anterior lip of the cervix grasped single-tooth tenaculum. Cervix gradually dilated, uterus sounded to 9 cm. Rvfwnc-wa-qbjtn stitches placed at the 3 and 9 o'clock position, not tied in. Uterine manipulator placed. Weighted speculum removed. Gloves were changed and attention was turned to the anterior abdominal wall. Veress needle placed through umbilicus, abdomen insufflated. Vertical incision made superior to umbilicus, trocar placed. Scope placed through trocar, visualization of the abdominal cavity. Right and left lateral incisions made and trocar placed under direct visualization. Left upper quadrant incision made and physical therapy assistant port placed under direct visualization. Robot docked. Inspection of the pelvis and abdominal cavities completed. Bilateral ureters visualized. Adhesions lysed between the right ovary and posterior uterus with sharp dissection. Right endometrioma entered and drained. Right ovarian cyst and ovary inspected at length, appeared to be spanning almost entire right pelvis, not adhesed to pelvic side wall. Attention then turned to the left. Left fallopian tube noted to be adhesed to the posterior uterus, adhesions lysed sharply, freeing the left fallopian tube. Left ovary inspected. Left ovarian cyst incised, drained of yellow clear fluid, small amount of hemorrhagic material. Ovarian cyst wall identified and grasped. Entire ovarian cyst wall removed using blunt and sharp dissection. Attention then turned again to the right ovarian cyst wall. Right ovarian cyst wall identified and carefully removed using blunt and sharp dissection in entirety. Endometriotic implants fulgurated. Colonic adhesions to the left pelvic sidewall lysed sharply. One uterine serosal cyst excised, serosa cauterized with bipolar cautery, hemostatic. Inspection of ovaries completed, noting some oozing. Right ovarian edges reapproximated with a running stitch. Hemostatic. Left ovarian edges then reapproximated with 2 knpnpo-nx-gyjxn stitches, hemostatic. Pelvis suction irrigated. Panfilo placed on ovaries and posterior cul-de-sac. Insufflation stopped and trochars removed. Skin incisions closed with subcuticular stitch and skin glue. Robot undocked. Suture removed from cervix and uterine manipulator removed. Sam catheter removed. At the end of the procedure all needle, lap, sponge counts were correct. UOP: 275cc Complications None
[2022-01-21 09:15] LABS: Bedside Glucose 114 mg/dL (74-106)
[2022-01-21] MEDS: Ondansetron 4 MG/2 ML Vial IV (10:20)
--- NOTE | 2022-01-21 10:26 | DCINST_ITS ---
Discharge Instructions Diet Discharge Diet: No restrictions Activity Discharge Activity: Return to Normal Activity and May Shower May resume sexual activity in: 2 weeks Weight Bearing Status: Weight bearing as tolerated Dressing / Incision Call your doctor if your incision/area has: Continuous Slow Oozing, Increased Redness, Foul Smelling Discharge and Swelling at the incision site Call your doctor if you observe: Fever of 101 or Higher, Change in Color, Inability to urinate, Using more than 1 pad per hour, Shortness of breath, Dizziness, Chest pain, Calf discomfort and Uncontrolled pain Cleanse incision/area with: Soap & Water Follow Up Care Please Follow Up With: Brianna Linn DO When: 2 weeks Test Results: Test results from this visit will be discussed in further detail at your follow- up appointment, if applicable. Discharge Plan Admission Primary Reason for Your Visit: Ovarian cystectomy Attending Provider: Brianna Linn Primary Care Provider: Gibran Nye Discharge Orders/Prescriptions Prescriptions: No Action NK Referrals / Follow Up: Gibran Nye MD [Primary Care Provider] - Disposition Disposition (needs filled in before D/C Order can be placed): Home, Self Care
--- NOTE | 2022-01-21 18:36 | SUR.PHASEII ---
SCOP PATCH REMOVED AT 1830. PATIENT HAS HAD MULTIPLE ATTEMPTS TO VOID ON BSC. UNSUCCESSFUL AT THIS TIME.
[2022-01-21] MEDS: HYDROcodone Bitartrate/Apap 5/325 Tablet PO (19:32)
[2022-01-21] MEDS: Acetaminophen 325 MG Tablet 650 MG PO (22:53)
[2022-01-21] MEDS: Ibuprofen 600 MG Tablet PO (22:53)
[2022-01-22 04:47] VITALS: BP 104/77; PULSE 92; RESP 18; TEMP 36.5; O2SAT 99
[2022-01-22] MEDS: Acetaminophen 325 MG Tablet 650 MG PO ×2 (04:48→10:00)
[2022-01-22] MEDS: Ibuprofen 600 MG Tablet PO (04:48)
--- NOTE | 2022-01-22 04:48 | PCM.PN.OB ---
Subjective Subjective No overnight complaints. Voiding spontaneously. Tolerating regular diet. Ambulating. Pain well controlled. Objective Data Objective Data Vital Signs: Vital Signs Temp Pulse Resp BP Pulse Ox O2 Del Method O2 Flow Rate 97.7 F L 92 18 104/77 99 Room Air 4 01/22/22 04:47 01/22/22 04:47 01/22/22 04:47 01/22/22 04:47 01/22/22 04:47 01/22/22 04:47 01/21/22 12:30 Oxygen Flow Rate (L/min) 4 Oxygen Delivery Method Room Air Weight: 139 lb Body Mass Index (BMI) 25.4 Intake & Output: Intake and Output for Last 24 Hours 01/20/22 01/21/22 01/22/22 23:59 23:59 23:59 Intake Total 3214 / 3214 Output Total 700 / 700 Balance 2514 / 2514 Lab / Micro Data Result Diagrams: 01/15/22 11:06 Labs: Laboratory Results - last 24 hr 01/21/22 06:55: Urine Test Negative 01/21/22 08:07: POC Glucose 114 H Physical Exam Const alert, oriented x3, no apparent distress, average body habitus, healthy appearing and well nourished HEENT normocephalic and moist oral mucous membranes Eyes PERRL Neck full ROM Resp normal respiratory effort, no retractions and no use of accessory muscles GI GI Narrative: soft, nontender, no distended. Incisions c/d/i Extremity normal to inspection, full ROM and no clubbing, cyanosis or edema Neuro moves all extremities and no focal motor deficits Psych mental status grossly normal, affect normal, speech normal and activity/motor behavior normal Assessment & Plan (1) Other acute postprocedural pain: PLAN: Postop day 1 status post robotic assisted bilateral ovarian cystectomy and fulguration of endometriosis lysis of adhesions. Now voiding spontaneously. Tolerating regular diet. Ambulating. Pain well controlled. Okay to discharge home
[2022-01-22] MEDS: Ondansetron 8 MG Tablet 4 MG PO (09:44)
[2022-01-22 10:13] VITALS: BP 126/85; PULSE 86; RESP 18; TEMP 36.6; O2SAT 96
[2022-01-22] MEDS: Ketorolac 15 MG/ML Vial IV (11:57)
--- NOTE | 2022-01-22 12:02 | NURSING ---
AWARE THAT ANTI-NAUSEA MEDS HAVE BEEN PHONED INTO HER rX
== END 2022-01-22 12:24 | disposition home or self-care (01) ==
LOC: SDC 21:53 → MS3 21:53
PROVIDERS: Anesthesiology; Admitting Provider Student in an Organized Health Care Education/Training Program; PCP Family Medicine; Referring Provider Student in an Organized Health Care Education/Training Program; Visit Provider Student in an Organized Health Care Education/Training Program
PROC: 0UT94ZZ Resection of Uterus, Percutaneous Endoscopic Approach (ICD-10-PCS; CPT 58662; principal; 2022-01-21 08:15)
DX: N83.12 Corpus luteum cyst of left ovary (principal); R10.2 Pelvic and perineal pain; N80.1 Endometriosis of ovary; J45.909 Unspecified asthma, uncomplicated
CPT/HCPCS: 58662; S2900; 00840; 36415; 81025; 82962; 83735; 85027; 85610; 85730; 86850; 86900; 86901; 88305; 96374; 99218; J7120; G0378; J2405

== ENCOUNTER → 2022-10-12 | Outpatient (CLI) | payer MEDICAID, SELFPAY ==
[2022-10-12 12:37] LABS: Absolute Lymphocyte Count 1.76 X10^3/uL (0.83-4.51); Absolute Neutrophil Count 8.1 X10^3/uL (2.0-7.7); Basophil# 0.05 X10^3/uL; Basophil% 0.5 % (0-1); Eosinophil# 0.08 X10^3/uL; Eosinophils% 0.8 % (0-5); Hematocrit 36.5 % (37-47); Lymphocyte # 1.76 X10^3/ul (0.83-4.51); Lymphocyte % 16.7 % (19-41); Mean Corp Hgb Conc 30.1 g/dL (32-36); Mean Corpuscular Hgb 24.9 pg (27.0-32.0); Mean Corpuscular Volume 82.6 fL (81-99); Mean Platelet Vol. 10.1 fl (6.2-12.0); Monocyte# 0.57 X10^3/uL; Monocyte% 5.4 % (0-10); NRBC Flagged by Analyzer 0 % (0-5); Neutrophil # 8.06 X10^3/uL (2.7-7.7); Neutrophil % 76.2 % (47-70); Platelet Count 446 K/mm3 (150-450); RBC Distribution Width CV 18.3 % (11.6-14.6); RBC Distribution Width SD 54.6 fl (35.1-43.9); Red Blood Count 4.42 M/mm3 (4.2-5.4); White Blood Count 10.6 K/mm3 (4.4-11.0)
[2022-10-12 15:00] LABS: Estradiol 50.4 pg/mL; Follicle Stimulating Hormone 4.2 mIU/mL; Luteinizing Hormone 3.9 mIU/mL; Prolactin 6.9 ng/mL; T4 Free Direct 1.03 ng/dL (0.76-1.46); Thyroid Stim Hormone (TSH) 2.01 uIU/mL (0.358-3.74)
[2022-10-16 14:10] LABS: Testosterone, % Free 0.91 % (0.50-2.80); Testosterone, Free 0.12 ng/dL (0.10-0.85); Testosterone, Total 13 ng/dL (8-60)
== END | disposition home or self-care (01) ==
PROVIDERS: PCP Family Medicine; Visit Provider Student in an Organized Health Care Education/Training Program
DX: R10.2 Pelvic and perineal pain (principal); N93.9 Abnormal uterine and vaginal bleeding, unspecified
CPT/HCPCS: 36415; 82670; 83001; 83002; 84146; 84402; 84403; 84439; 84443; 85025

== ENCOUNTER → 2022-12-03 | Outpatient (CLI) | payer MEDICAID, SELFPAY | END | disposition home or self-care (01) | LOC: WOBLAB 11:15 | PROVIDERS: PCP Family Medicine; Visit Provider Student in an Organized Health Care Education/Training Program | DX: Z01.818 Encounter for other preprocedural examination (principal) | CPT/HCPCS: 36415; 83735; 85027; 85610; 85730; 86850; 86900; 86901 ==

== ENCOUNTER 2022-12-09 17:37 | Observation (INO) | payer MEDICAID, SELFPAY ==
[2022-12-03 12:42] LABS: Hematocrit 42.4 % (37-47); Hemoglobin 13.2 g/dL (12.0-15.0); Mean Corp Hgb Conc 31.1 g/dL (32-36); Mean Corpuscular Volume 86.7 fL (81-99); Mean Platelet Vol. 10.5 fl (6.2-12.0); Platelet Count 359 K/mm3 (150-450); RBC Distribution Width CV 18.5 % (11.6-14.6); RBC Distribution Width SD 58.7 fl (35.1-43.9); Red Blood Count 4.89 M/mm3 (4.2-5.4); White Blood Count 7.5 K/mm3 (4.4-11.0)
[2022-12-03 12:50] LABS: International Normalized Ratio 0.9; Prothrombin Time (Protime)PT. 12.4 SECONDS (11.7-14.9)
[2022-12-03 12:51] LABS: Partial Thromboplast Time 33.7 Seconds (24.1-36.2)
[2022-12-03 13:17] LABS: Magnesium 2.2 mg/dL (1.6-2.6)
[2022-12-09] VITALS (14 sets, daily range): BP systolic 95–120; BP diastolic 53–76; PULSE 78–121; RESP 12–18; TEMP 36.6–37.4; O2SAT 96–100; BMI 23.8; BMI 26.6
[2022-12-09 06:00] LABS: Internal QC Validated? YES +Cl - CLEAR BKGD; Pregnancy, Urine Negative Negative
[2022-12-09] MEDS: dexAMETHasone 4 MG/ML Vial 8 MG IV (06:13)
[2022-12-09] MEDS: Gabapentin 600 MG Tablet PO (06:13)
[2022-12-09] MEDS: Acetaminophen 500 MG Tablet 1000 MG PO ×3 (06:13→20:51)
[2022-12-09] MEDS: Magnesium 1 GM over 15 mins IV (06:14)
[2022-12-09] MEDS: Lactated Ringers 1,000 ML 40 ML IV (06:14)
[2022-12-09 06:26] LABS: Bedside Glucose 91 mg/dL (74-106)
--- NOTE | 2022-12-09 07:07 | PCM.HP.BLA ---
History and Physical Date of Admission: 12/09/22 HPI: 37-year-old female planned for robotic assisted total laparoscopic hysterectomy, bilateral salpingectomy, left oophorectomy, cystoscopy for endometriosis, pelvic pain, ovarian cyst. Denies headache or vision changes, chest pain or shortness of breath, nausea or vomiting, diarrhea constipation, fevers or chills. 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 Endometriosis 2. Seasonal allergies Surgical history: 1. [place] tooth extraction 2001 2. Robotic assisted bilateral ovarian cystectomy, mild lysis of adhesions, fulguration of endometriosis, excision of uterine cyst No history of issues with anesthesia Allergies: No known drug allergies Medications: 1. Cetirizine Family history: No history of issues with anesthesia, blood clots or bleeding disorders Social history: Denies tobacco, alcohol, drug use Review of system: Negative otherwise stated above Physical exam: Blood pressure 107/74, pulse 79, respirations 17, temp 97.8 ?F, oxygen saturation 100% on room air General: No acute distress HEENT: Normocephalic/atraumatic, PERRLA Cardiac: Regular rate and rhythm Respiratory: Clear to auscultation bilaterally Abdomen: Soft, nontender Extremities: No edema Neurologic: Cranial nerves II through XII grossly intact, no focal deficits Musculoskeletal: Moves all extremities equally Assessment/plan: 37-year-old female planned for robotic assisted total laparoscopic hysterectomy, bilateral salpingectomy, left oophorectomy, cystoscopy for endometriosis, pelvic pain, ovarian cyst. All risk, benefits, alternatives were discussed with the patient. Risks include but are not limited to: Risk of bleeding to the point of transfusion, infection, injury to surrounding tissue including bowel/bladder potentially requiring prolonged Sam catheter use/major abdominal vessels, VTE, ICU admission. Patient aware and consented.
[2022-12-09] MEDS: Cefazolin 2 GM in 0.9% Normal Saline 100 ML IV (07:29)
--- NOTE | 2022-12-09 07:30 | HYST_PTH ---
PATIENT: CHAN WELCH LOC: [facility] U#:[id number] AGE/SX: 37/F ROOM: PA322 RE12/09/[address]: Dr. Brianna Linn DO : 1985 BED: 1 DIS: 12/10/2022 SPEC #: [id number] RECD: 12/09/22 11:05 STATUS: CLEO RERogelio #: [id number] SCOTTIE: 12/09/22 07:[address]: Brianna Linn DEPT: SURGICAL PATHOLOGY RECD BY: Cinda Ruiz ENTERED: 12/09/22 11:17 SP TYPE: HYSTERECT OTHR DR: Dr. Gibran Nye MD Tissues: Uterus, NOS Procedures: Surgery Specimen Level V HEADER OPERATION: Lap robotic hysterectomy, bilateral salpingectomy, left oophorectomy, cystectomy PRE-OP DIAGNOSIS: Endometriosis, pelvic pain, ovarian cyst TISSUE SUBMITTED: Uterus, bilateral fallopian tubes, left ovary MICROSCOPIC DIAGNOSIS Uterus, bilateral fallopian tubes and left ovary: Cervix - chronic inflammation and squamous metaplasia. Endometrium - secretory endometrium. Myometrium - intramural leiomyoma (0.7 cm in greatest dimension). - Adenomyosis. Right and left fallopian tubes - focal changes suggestive of endometriosis. Left ovary - endometriosis. See comment. - Physiologic follicular and corpus luteal cysts. SJ:rg 12/10/2022 COMMENT In the left ovary, the largest cyst is consistent with hemorrhagic corpus luteal cyst. Endometriotic changes are noted close to the surface of the ovary. Please make reference to previous specimen ([id number]) left ovarian cyst, cystectomy with diagnosis of hemorrhagic corpus luteal cyst and uterine cyst, biopsy with diagnosis of benign mesothelial cyst and right endometrioma with diagnosis of ovarian tissue with endometriotic cyst. MICROSCOPIC DESCRIPTION Slides are reviewed. GROSS DESCRIPTION Received in fixative is one container labeled with the patient's name and designated uterus, bilateral fallopian tubes, left ovary. The specimen consists of a hysterectomy specimen consisting of uterus with cervix, detached right fallopian tube and detached left fallopian tube and ovary. The uterus with cervix weighs 126 gm and measures 10.0 x 7.0 x 5.0 cm. The serosal surface is ragged. The ectocervical mucosa is unremarkable. The external os is circular in contour. The endocervical canal measures 3.0 cm in length and the endocervical mucosa is emerson, glistening and unremarkable. The triangular endometrial cavity measures 5.5 cm in length and 3.0 cm in width. The endometrium is emerson, glistening without any mass lesion and measures up to 0.4 cm in thickness. Sections of the uterine wall reveal a emerson, nodular mass measuring 0.7 cm in greatest dimension. Sections of this mass reveals emerson whorled cut surfaces without areas of hemorrhage, necrosis or cystic degeneration. Sections of the anterior uterine wall also reveal ill-defined nodular masses and focal cystic area filled with chocolate brown material suspicious for adenomyosis. Anterior uterine wall measures up to 3.0 cm in thickness and posterior uterine wall measures 1.5 cm in thickness. The right fallopian tube measures 5.0 cm in length and 0.8 cm in diameter. The fimbrial end is identified. Sections reveal unremarkable cut surfaces. The left fallopian tube is similar appearance to right and measures 6.0 cm in length and 0.7 cm in diameter. Focal tubo-ovarian adhesions are noted. The fimbrial end is identified. Sections reveal unremarkable cut surfaces. The soft to cystic left ovary measures 5.0 x 4.0 x 3.0 cm and weighs 35 gm. External surface is inked black. Sections reveal multiple cysts filled with hemorrhagic fluid filled, blood clots and hemorrhagic mucoidy material. The largest cyst measures 3.0 cm in greatest dimension. In [employer] sections are submitted in 14 cassettes as follows: 1 - anterior cervix, 2 - posterior cervix, 3 & 4 - anterior uterine wall, 5 & 6 - posterior uterine wall, 7 & 8 - anterior uterine wall suspicious for adenomyosis, 9 - nodular mass, 10 - right fallopian tube, 11 - left fallopian tube, 12-14 - left ovary (cassette 12 contains the largest cyst). / SHELBI:letha 12/09/2022 TC:5 CPT: 90568
--- NOTE | 2022-12-09 10:08 | PCM.OPRPT ---
Report of Operation Date of Procedure: 12/09/22 Pre-Operative Diagnosis: Pelvic pain, endometriosis, left ovarian cyst Post-Operative Diagnosis: Pelvic pain, endometriosis, left ovarian cyst Surgery/Procedure Performed:: Robotic assisted total laparoscopic hysterectomy, bilateral salpingectomy, left oophorectomy, cystoscopy Description of Surgical Findings:: Normal-appearing external genitalia. Normal-appearing right ovary and fallopian tube. Normal-appearing left fallopian tube. Bilateral fallopian tubes adhesed to their respective ovaries. Left fallopian tube adhesed with left ovary and ovarian cyst. Peritoneal cysts on uterine serosa. Bladder adhesed to anterior uterus and cervix. Peritoneal window left posterior cul-de-sac. Surgeon: Brianna Linn pharmacovigilance safety expert: Abel Mayen Type of Anesthesia: General Specimen's removed: Bilateral fallopian tubes, uterus, cervix, left ovary and ovarian cyst Estimated Blood Loss (mL): 100cc Fluids Replaced: 1900cc IVF Description of Procedure: Indication/risk/benefits: This is a 37-year-old female with pelvic pain and endometriosis, and left ovarian cyst plan for robotic assisted total laparoscopic hysterectomy, bilateral salpingectomy, left oophorectomy. All risk, benefits, alternatives discussed with patient. Risks include but are not limited to: Risk of bleeding to the point of transfusion, infection, injury to surrounding tissue including bowel/bladder/major abdominal vessels, VTE, ICU admission. Patient aware and consented. Procedure: Patient taken to the operating room and placed under general anesthesia. Placed in the dorsal lithotomy position and prepped and draped in usual sterile fashion. Sam catheter placed. Weighted speculum placed in the posterior vagina and Neal retractor used to visualize the cervix. Anterior lip of the cervix grasped with single-tooth tenaculum. Cervix sequentially dilated. Figure of 8 stitches placed at the 3 and 9:00 positions on the cervix. Medium uterine manipulator placed. Gloves were changed and attention turned to the anterior abdominal wall. Vertical supraumbilical incision made with scalpel and trocar placed under direct visualization. Abdomen insufflated. Right and left lower quadrant trocars placed under direct visualization. Trocar placed at Rodriguez's point. Supraumbilical trocar removed and robotic trocar placed. Robot docked. Inspection of the abdomen noted findings stated above. Bilateral ureters identified. Left fallopian tube and ovary gently dissected away from left posterior uterus gently with blunt dissection. Left IP ligament coagulated and cut. Dissection of the tube and ovary completed along the left side of the uterus and at the utero-ovarian ligament. Left tube and ovary placed in the posterior cul-de-sac. Left round ligament incised and anterior leaf of the broad ligament was dissected towards the anterior uterus and cervix. Right round ligament incised and dissection of the anterior leaf of the broad ligament towards the anterior cervix was completed. Right utero ovarian ligament coagulated and cut. Partial dissection down the right side of the uterus completed. Uterus was retroverted and further dissection of the vesicouterine peritoneum completed. Adhesions noted at the prior section scar. Right side of the vesicouterine peritoneum was dissected, allowing the bladder to fall away. However bladder appeared to be adhesed superiorly on the left. Bladder was then backfilled with 200 cc of saline. Noting that the edge of the bladder appeared to be tucked up at that left side of the uterus and cervix. Careful blunt and sharp dissection was completed freeing the bladder and allowing to fall away from the anterior cervix. Bilateral uterine arteries skeletonized. Left uterine arteries coagulated and cut perpendicular then parallel to the uterus and cervix. Right uterine arteries coagulated and cut in a similar fashion. Uterine arteries dissected away from the colpotomy cup. Anterior colpotomy made and completed circumferentially in the 3 and 60 degree manner. Uterus and cervix were removed through the vagina. Left ovary, tube, cyst removed through the vagina. Right fallopian tube identified and removed along mesosalpinx, this was removed through a trocar. Decision to leave right ovary was made as the right ovary appeared to be normal in appearance without any evidence of cyst or endometriosis on the ovary surface. Pelvis was irrigated and suction. Colpotomy closed with a running V-Loc stitch. Intra-abdominal pressure was lowered to monitor for bleeding and cystoscopy was completed. Cystoscopy completed. Sam catheter removed. Cystoscope placed through the urethra noting intact bladder dome and bilateral ureteral jets. Cystoscope removed. Dissection beds hemostatic on laparoscopy. Insufflation was stopped and trocars removed. Skin closed with a subcuticular stitch and skin glue. At the end of the procedure all needle, lap, sponge counts were correct. UOP: 100cc clear urine Complications None Admit VTE Documentation VTE Mechan Device Prophylaxis: SCD's
--- NOTE | 2022-12-09 11:44 | DCINST_ITS ---
Discharge Instructions Diet Discharge Diet: No restrictions Activity Discharge Activity: Return to Normal Activity and May Shower May resume sexual activity in: 6 weeks Weight Bearing Status: Weight bearing as tolerated Lifting Restrictions: 15 pounds or less Dressing / Incision Call your doctor if your incision/area has: Continuous Slow Oozing, Increased Redness and Foul Smelling Discharge Call your doctor if you observe: Fever of 101 or Higher, Inability to urinate, Inability to have a bowel movement, Using more than 1 pad per hour, Shortness of breath, Swelling in the ankles, Chest pain and Uncontrolled pain Cleanse incision/area with: Soap & Water and Keep Dressing Clean & Dry Follow Up Care Please Follow Up With: Brianna Linn DO When: 2 weeks post operative appointment Test Results: Test results from this visit will be discussed in further detail at your follow- up appointment, if applicable. Discharge Plan Admission Primary Reason for Your Visit: Hysterectomy Attending Provider: Brianna Linn Primary Care Provider: Gibran Nye Discharge Orders/Prescriptions Prescriptions: New oxycodone 5 mg tablet 5 mg PO Q6H PRN (Reason: pain (scale score 7-10)) 5 Days Qty: 20 0RF ondansetron 4 mg tablet,disintegrating 4 mg PO Q6H PRN (Reason: nausea and vomiting) Qty: 30 0RF Continued All Day Allergy (cetirizine) 10 mg capsule 10 mg PO DAILY PRN (Reason: allergies) Referrals / Follow Up: Gibran Nye MD [Primary Care Provider] - Disposition Disposition (needs filled in before D/C Order can be placed): Home, Self Care
[2022-12-09] MEDS: oxyCODONE 5 MG Tablet PO (14:35)
[2022-12-09] MEDS: Lactated Ringers 1,000 ML 15 ML IV (15:59)
[2022-12-09] MEDS: Ketorolac 30 MG/ML Syringe IV ×2 (16:42→23:56)
[2022-12-09] MEDS: HYDROmorphone 0.5 MG/0.5 ML SYRINGE IV (17:45)
[2022-12-09] MEDS: Lactated Ringers 1,000 ML 100 ML IV (20:48)
[2022-12-10] VITALS (9 sets, daily range): BP systolic 86–101; BP diastolic 54–65; PULSE 78–98; RESP 16–18; TEMP 36.5–37.2; O2SAT 98–100
[2022-12-10] MEDS: Acetaminophen 500 MG Tablet 1000 MG PO ×3 (04:09→14:33)
[2022-12-10] MEDS: Ketorolac 30 MG/ML Syringe IV ×2 (05:45→12:53)
[2022-12-10] MEDS: Lactated Ringers 1,000 ML 100 ML IV (05:45)
[2022-12-10 08:11] LABS: Absolute Lymphocyte Count 1.29 X10^3/uL (0.83-4.51); Absolute Neutrophil Count 7.5 X10^3/uL (2.0-7.7); Basophil# 0.02 X10^3/uL; Basophil% 0.2 % (0-1); Eosinophil# 0.01 X10^3/uL; Eosinophils% 0.1 % (0-5); Hematocrit 31.8 % (37-47); Hemoglobin 9.9 g/dL (12.0-15.0); Lymphocyte # 1.29 X10^3/ul (0.83-4.51); Lymphocyte % 13.7 % (19-41); Mean Corp Hgb Conc 31.1 g/dL (32-36); Mean Corpuscular Hgb 27.5 pg (27.0-32.0); Mean Corpuscular Volume 88.3 fL (81-99); Mean Platelet Vol. 9.9 fl (6.2-12.0); Monocyte# 0.57 X10^3/uL; Monocyte% 6.1 % (0-10); NRBC Flagged by Analyzer 0 % (0-5); Neutrophil # 7.48 X10^3/uL (2.7-7.7); Neutrophil % 79.6 % (47-70); Platelet Count 264 K/mm3 (150-450); RBC Distribution Width CV 18.6 % (11.6-14.6); RBC Distribution Width SD 60.1 fl (35.1-43.9); White Blood Count 9.4 K/mm3 (4.4-11.0)
--- NOTE | 2022-12-10 08:42 | PCM.PN.OB ---
Subjective Subjective Patient feeling gas pain. Has ordered breakfast. Tolerating fluids. Feeling some bloating. Objective Data Objective Data Vital Signs: Vital Signs Temp Pulse Resp BP Pulse Ox O2 Del Method O2 Flow Rate 98.4 F 96 16 100/59 L 99 Room Air 4 12/10/22 08:21 12/10/22 08:21 12/10/22 08:21 12/10/22 08:21 12/10/22 08:21 12/10/22 08:21 12/09/22 11:59 Oxygen Flow Rate (L/min) 4 Oxygen Delivery Method Room Air Weight: 66.043 kg Body Mass Index (BMI) 26.6 Intake & Output: Intake and Output for Last 24 Hours 12/08/22 12/09/22 12/10/22 23:59 23:59 23:59 Intake Total 4212 / 4412 1449 / 1449 Output Total 525 / 1275 930 / 930 Balance 3687 / 3137 519 / 519 Lab / Micro Data 12/10/22 07:59 Labs: Laboratory Results - last 24 hr 12/10/22 07:59: WBC 9.4, RBC 3.60 L, Hgb 9.9 L, Hct 31.8 L, MCV 88.3, MCH 27.5, MCHC 31.1 L, RDW Std Deviation 60.1 H, RDW Coeff of Johnnie 18.6 H, Plt Count 264, MPV 9.9, Immature Gran % (Auto) 0.300, Neut % (Auto) 79.6 H, Lymph % (Auto) 13.7 L, Gregory % (Auto) 6.1, Eos % (Auto) 0.1, Baso % (Auto) 0.2, Absolute Neuts (auto) 7.5, Absolute Lymphs (auto) 1.29, Nucleated RBC % 0 Physical Exam Const alert, oriented x3 and no apparent distress Resp normal respiratory effort Cardio regular rate GI soft to palpation GI Narrative: Mildly tender to palpation. Minimally distended. Incisions clean/dry/intact. Extremity no pedal edema Neuro moves all extremities, no focal motor deficits and no sensory deficits noted Assessment & Plan (1) Other acute postprocedural pain: PLAN: Postoperative day 1 status post robotic assisted total laparoscopic hysterectomy, bilateral salpingectomy, left oophorectomy, cystoscopy for ovarian cyst, pelvic pain, endometriosis. ?Pain better controlled today. ?Sam was just removed, awaiting voiding spontaneously ?Tolerating oral intake ?We will get up to ambulate today ?Acute blood loss anemia secondary to surgery. Patient will iron supplement on home-going Diet: Regular IV fluids: We will discontinue DVT prophylaxis: Lovenox 40 mg daily while inpatient Dispo: Plan for discharge today pending spontaneous voiding. Discussed plan of care with patient, and her .
[2022-12-10] MEDS: SimETHICONE 80 MG Chewable Tablet PO ×2 (09:58→12:53)
[2022-12-10] MEDS: 0.9% Saline Lock 10 ML Syringe IV ×2 (09:59→12:53)
--- NOTE | 2022-12-10 10:14 | PHA.DC.MC.R ---
Pharmacy [facility] has performed discharge medication reconciliation and counseling for this patient. The patient's discharge medication list was reviewed for discrepancies and discrepancies were resolved. The patient was counseled on the following discharge medications and changes in medications for homegoing were reviewed. The Reason for Use, instructions for use, and potential side effects were reviewed for all new medications. The patient's questions regarding all of their medications were answered. 1. Ondansetron 2. Oxycodone The patient was able to verbally demonstrate an understanding of their discharge medications. The patient was counselled on the new above medications by pharmacy billing adjudicator Tushar. Medications at Discharge Home Medications cetirizine 10 mg capsule (All Day Allergy (cetirizine)) 10 mg PO DAILY PRN allergies 12/09/22 ondansetron 4 mg disintegrating tablet 4 mg PO Q6H PRN nausea and vomiting #30 tabs 12/09/22 oxycodone 5 mg tablet 5 mg PO Q6H PRN pain (scale score 7-10) 5 days #20 tabs 12/09/22
[2022-12-10] MEDS: Enoxaparin 40 MG/0.4 ML Syringe SC (12:53)
== END 2022-12-10 15:06 | disposition home or self-care (01) ==
LOC: SDC 22:55 → MS3 22:55
PROVIDERS: Anesthesiology; Admitting Provider Student in an Organized Health Care Education/Training Program; PCP Family Medicine; Referring Provider Student in an Organized Health Care Education/Training Program; Visit Provider Student in an Organized Health Care Education/Training Program
PROC: 0UT90ZZ Resection of Uterus, Open Approach (ICD-10-PCS; CPT 58552; principal; 2022-12-09 07:10)
DX: D25.1 Intramural leiomyoma of uterus (principal); N83.12 Corpus luteum cyst of left ovary
CPT/HCPCS: 58552; S2900; 00944; J2405; 36415; 81025; 82962; 83735; 85025; 85027; 85610; 85730; 86850; 86900; 86901; 88307; 96361; 96372; 96374; 96376; 99221; J7120; A4216; G0378; J3475